=== PATIENT | male | born 1975 | race African-American/Black ===

== ENCOUNTER 2020-09-13 12:55 | Emergency (ER) | payer OTHER ==
[~2020-09-13] VITALS: Ht 190.5 cm; Wt 86.2 kg
[~2020-09-13 12:55] MED LIST: Amoxicillin500 MG PO; CRUTCH3 USE; CYCL10 PO; HYDACE5 PO; NAPR500 PO; Norco 5-325 Ta1 EACH PO; PENVK500 PO; PRED20 PO; PROCODE120 PO
== END 2020-09-13 15:34 | disposition home or self-care (01) ==
LOC: ER 12:55
DX: S61.412A Laceration without foreign body of left hand, initial encounter (principal); F17.210 Nicotine dependence, cigarettes, uncomplicated; Z88.8 Allergy status to other drugs, medicaments and biological substances; Z23 Encounter for immunization; W25.XXXA Contact with sharp glass, initial encounter
CPT/HCPCS: 12001; 90471; 90714; 99282

== ENCOUNTER 2020-12-19 05:33 | Emergency (ER) | payer OTHER ==
[~2020-12-19] VITALS: Ht 190.5 cm; Wt 88.5 kg
[2020-12-19] MEDS ORDERED: HYDR1TAB94 PO (06:22)
== END 2020-12-19 06:35 | disposition home or self-care (01) ==
LOC: ER 05:33
DX: J02.0 Streptococcal pharyngitis (principal); F17.210 Nicotine dependence, cigarettes, uncomplicated; Z91.018 Allergy to other foods
CPT/HCPCS: 87430; 96372; 99282-25; A9270-GY; J0561; J1100